=== PATIENT | male | born 1970 | race Caucasian/White ===

== ENCOUNTER 2016-09-26 14:47 | Emergency (ER) | payer SELFPAY ==
[~2016-09-26] VITALS: Ht 175.3 cm; Wt 77.3 kg
[~2016-09-26 14:47] MED LIST: NO HOME MEDICATIONS; VICODIN 5/5001 UDTAB PO
[2016-09-26 15:03] VITALS: BP 144/89; PULSE 85; TEMP 98
[2016-09-26 16:15] LABS: AMPHETAMINE URINE POSITIVE; BARBITURATES URINE NEGATIVE; BENZODIAZEPINES URINE NEGATIVE; BUPRENORPHINE URINE NEGATIVE; METHADONE URINE NEGATIVE; OPIATES URINE NEGATIVE; OXYCODONE URINE NEGATIVE; PHENCYCLIDINE URINE NEGATIVE; PROPOXYPHENE URINE NEGATIVE; THC CANNABINOIDS URINE POSITIVE
[2016-09-26 16:24] LABS: BASO % 0.3 % (0.0-2.0); EOS # 0.3 (0.0-0.7); EOS % 3.5 % (0-4.0); GRAN # 5.2 (1.4-6.5); HEMATOCRIT 40.2 % (42.0-52.0); HEMOGLOBIN 13.7 g/dl (13.5-18.0); LYMPH # 3.3 (1.2-3.4); LYMPH % 34.7 % (20.0-51.0); MEAN CELL VOLUME 92 fl (80.0-100.0); MEAN CORPUSCULAR HEMOGLOBIN 31 pg (27.0-31.0); MEAN CORPUSCULAR HGB CONC 34 g/dl (33.0-37.0); MEAN PLATELET VOLUME 10.7 fl (7.4-10.4); MONO # 0.6 (0.1-0.6); MONO % 6.2 % (1.7-9.3); PLATELET COUNT 328 K/mm3 (130-400); RED BLOOD COUNT 4.36 M/mm3 (4.20-5.60); REDCELL DISTRIBUTION WIDTH-CV 12.7 % (11.5-14.5); WHITE BLOOD COUNT 9.5 K/mm3 (4.8-10.8)
[2016-09-26 16:28] LABS: ADJUSTED CALCIUM 9.2 mg/dL (8.4-10.2); ALANINE AMINOTRANSFERASE 37 U/L (21-72); ALBUMIN 4.1 gm/dL (3.5-5.0); ALKALINE PHOSPHATASE 99 U/L (50-136); ANION GAP 13 mmol/L (7-16); BILIRUBIN,TOTAL 0.9 mg/dL (0.0-1.0); BLOOD UREA NITROGEN 11 mg/dL (9-20); CALCIUM 9.3 mg/dL (8.4-10.2); CARBON DIOXIDE 24 mmol/L (22-30); CHLORIDE 103 mmol/L (98-107); CREATININE, serum 0.75 mg/dL (0.66-1.25); GLUCOSE 91 mg/dL (74-106); POTASSIUM 3.6 mmol/L (3.4-5.0); SODIUM 140 mmol/L (137-145); TOTAL PROTEIN 7.2 gm/dL (6.4-8.2)
[2016-09-26 16:33] LABS: ACETAMINOPHEN < 10 ug/mL (10-30); SALICYLATE < 1.0 mg/dL
== END 2016-09-26 17:54 | disposition left against medical advice (07) ==
LOC: COL.ER 14:47
PROVIDERS: Emergency Medicine
DX: F29 Unspecified psychosis not due to a substance or known physiological condition (principal); Z53.21 Procedure and treatment not carried out due to patient leaving prior to being seen by health care provider; F15.10 Other stimulant abuse, uncomplicated; F12.10 Cannabis abuse, uncomplicated

== ENCOUNTER 2016-11-24 23:51 | Emergency (ER) | payer SELFPAY ==
[~2016-11-24] VITALS: Ht 175.3 cm; Wt 87.7 kg
[2016-11-24 23:52] VITALS: BP 136/90; TEMP 98.6
[2016-11-25] MEDS ORDERED: ROXICODONE 55 MG/TAB PO (00:28)
[2016-11-25] MEDS ORDERED: ULTRAM 50MG TAB50 MG PO (00:28)
[2016-11-25 00:36] VITALS: PULSE 82
== END 2016-11-25 00:36 | disposition home or self-care (01) ==
LOC: COL.ER 23:51
DX: H16.133 Photokeratitis, bilateral (principal); F17.210 Nicotine dependence, cigarettes, uncomplicated

== ENCOUNTER 2017-05-16 19:46 | Emergency (ER) | payer OTHER ==
[~2017-05-16] VITALS: Ht 175.3 cm; Wt 88.6 kg
[~2017-05-16 19:46] MED LIST changes: +ROXICODONE 55 MG/TAB PO; +ULTRAM 50MG TAB50 MG PO
[2017-05-16 19:59] VITALS: TEMP 99.3
[2017-05-16 20:46] VITALS: BP 162/107
[2017-05-16] MEDS ORDERED: PRINIVIL10 MG PO (20:56)
[2017-05-16 21:07] VITALS: PULSE 96
== END 2017-05-16 21:07 | disposition home or self-care (01) ==
LOC: COL.ER 19:46
DX: I10 Essential (primary) hypertension (principal); R20.2 Paresthesia of skin; F17.210 Nicotine dependence, cigarettes, uncomplicated

== ENCOUNTER → 2017-12-25 | Outpatient (CLI) | payer OTHER ==
[~2017-12-25] MED LIST changes: +PRINIVIL10 MG PO
== END ==
LOC: COL.PUL 07:42
DX: R06.02 Shortness of breath (principal)

== ENCOUNTER 2019-05-25 09:50 | Emergency (ER) | payer OTHER ==
[~2019-05-25] VITALS: Ht 175.3 cm; Wt 90.9 kg
[2019-05-25 09:58] VITALS: TEMP 97.4
[2019-05-25] MEDS ORDERED: PREDNISONE20 MG PO (10:15)
[2019-05-25] MEDS ORDERED: DOXYCYCLINE 10100 MG PO (10:15)
[2019-05-25] MEDS ORDERED: VENTOLIN0.09 MG IH (10:15)
[2019-05-25 10:32] LABS: HEMATOCRIT 45.5 % (42.0-52.0); HEMOGLOBIN 15.5 g/dl (13.5-18.0); MEAN CELL VOLUME 92 fl (80.0-100.0); MEAN CORPUSCULAR HEMOGLOBIN 31 pg (27.0-31.0); MEAN CORPUSCULAR HGB CONC 34 g/dl (33.0-37.0); MEAN PLATELET VOLUME 11.4 fl (7.4-10.4); PLATELET COUNT 266 K/mm3 (130-400); RED BLOOD COUNT 4.95 M/mm3 (4.20-5.60); REDCELL DISTRIBUTION WIDTH-CV 12.3 % (11.5-14.5)
[2019-05-25 10:38] LABS: ALBUMIN 4.3 gm/dL (3.5-5.0); BILIRUBIN,TOTAL 0.9 mg/dL (0.0-1.0); CALCIUM 9.3 mg/dL (8.4-10.2); CREATININE, serum 0.88 (0.66-1.25); POTASSIUM 4.1 mmol/L (3.4-5.0)
[2019-05-25] MEDS ORDERED: [UNRECOGNIZED DRUG - OTHER] INH (10:49)
[2019-05-25 11:14] LABS: EOSINOPHIL 1 % (0-4); LYMPHOCYTE 42 % (20.0-51.0); NEUTROPHILS 50 % (42.0-75.2)
[2019-05-25 11:15] LABS: PLATELET ESTIMATE NORMAL (NORMAL)
[2019-05-25 12:15] VITALS: BP 103/76; PULSE 88
== END 2019-05-25 12:25 | disposition home or self-care (01) ==
LOC: COL.ER 09:50
PROVIDERS: Emergency Medicine
DX: J44.1 Chronic obstructive pulmonary disease with (acute) exacerbation (principal); F17.210 Nicotine dependence, cigarettes, uncomplicated; Z90.89 Acquired absence of other organs
CPT/HCPCS: J2930; J3475; J7030

== ENCOUNTER → 2019-06-04 | Outpatient (CLI) | payer OTHER ==
[~2019-06-04] MED LIST changes: +DOXYCYCLINE 10100 MG PO; +PREDNISONE20 MG PO; +VENTOLIN0.09 MG IH; +[UNRECOGNIZED DRUG - OTHER] INH
== END ==
LOC: COL.VAS 11:36 → COL.LAB 11:36 → COL.VAS 12:30
DX: I77.819 Aortic ectasia, unspecified site (principal); I36.1 Nonrheumatic tricuspid (valve) insufficiency

== ENCOUNTER 2019-07-01 09:32 | Day surgery (SDC) | payer OTHER ==
[2019-07-01] VITALS (9 sets, daily range): BP systolic 105–131; BP diastolic 56–97; PULSE 76–89; TEMP 97.8
[~2019-07-01] VITALS: Ht 175.3 cm; Wt 98.0 kg
[2019-07-01 10:20] LABS: HEMATOCRIT 44.4 % (42.0-52.0); MEAN CELL VOLUME 93 fl (80.0-100.0); MEAN CORPUSCULAR HEMOGLOBIN 31 pg (27.0-31.0); MEAN CORPUSCULAR HGB CONC 34 g/dl (33.0-37.0); MEAN PLATELET VOLUME 10.7 fl (7.4-10.4); PLATELET COUNT 298 K/mm3 (130-400); RED BLOOD COUNT 4.78 M/mm3 (4.20-5.60); REDCELL DISTRIBUTION WIDTH-CV 13.1 % (11.5-14.5)
[2019-07-01 10:30] LABS: PROTHROMBIN TIME 11.6 SECONDS (9.7-12.8)
[2019-07-01 10:32] LABS: PARTIAL THROMBOPLASTIN TIME 38.1 SECONDS (26.0-37.0)
[2019-07-01] MEDS ORDERED: ASPIRIN E.C. 8181 MG PO (10:32)
[2019-07-01 10:33] LABS: CALCIUM 9.6 mg/dL (8.4-10.2); CREATININE, serum 0.85 (0.66-1.25); POTASSIUM 4.5 mmol/L (3.4-5.0)
[2019-07-01] MEDS ORDERED: K-TAB20 PO (10:35)
[2019-07-01] MEDS ORDERED: LASIX 40MG TABL40 MG PO (10:35)
[2019-07-01] MEDS ORDERED: COREG 3.123.125 MG/T PO ×2 (10:37→12:13)
[2019-07-01] MEDS ORDERED: TRELEGY ELLIPT1 EACH IH (10:38)
[2019-07-01] MEDS ORDERED: COZAAR 25MG25 MG/TAB PO (10:38)
[2019-07-01] MEDS ORDERED: RT ALBUTER2.5 MG/0.5 IH (10:40)
--- NOTE | 2019-07-01 11:44 | NUR ---
SEE MERGE FOR MEDICATION ADMINISTRATION AND INRA/POST PROCEDURE SEDATION ASSESSMENTS.
--- NOTE | 2019-07-01 12:25 | NUR ---
pt to eu 9 from heart cath via bed. family with pt. call light in reach. no c/o. reviewed bedrest and activity with pt. drinks juice
--- NOTE | 2019-07-01 13:10 | NUR ---
pt sits up and eats, no c/o
--- NOTE | 2019-07-01 13:25 | NUR ---
PT C/O NUMBNESS TO ALL FINGERS ON RIGHT HAND, NAILS BOBO WELL, COLOR PINK, WARM TO TOUCH, 1CC OF AIR RELEASED, PT STATES FINGERS ARE NOW NORMAL, NO SIGNS OF BLEEDING
--- NOTE | 2019-07-01 14:15 | NUR ---
PT STOOD TO USE URINAL, VOIDED 300CC YELLOW URINE, NO C/O, REVIEWED DISCHARGE INST. WITH PT AND ON ACTIVITY, CARE OF SITE, APPT AND FOLLOWUP AND NEW RX TO BE PICKED UP WITH INCREASE OF COREG WITH VERBAL UNDERSTANDING.
--- NOTE | 2019-07-01 14:30 | NUR ---
BAND RELEASED 2CC OF AIR, RELEASED AGAIN 2CC AT 1445 AND 2CC AT 1500, NO BLEEDING NOTED, BANDAID TO SITE THEN COBAN APPLIED. IV D'CD INTACT. PT UP IN ROOM DRESSED
--- NOTE | 2019-07-01 15:20 | NUR ---
PT DISCHARGED VIA W/C TO CAR WITH FAMILY
== END 2019-07-01 15:25 | disposition home or self-care (01) ==
LOC: COL.CAR 09:32
PROVIDERS: Internal Medicine Cardiovascular Disease
DX: I11.9 Hypertensive heart disease without heart failure (principal); I43 Cardiomyopathy in diseases classified elsewhere; Z87.891 Personal history of nicotine dependence; Z88.8 Allergy status to other drugs, medicaments and biological substances; Z79.52 Long term (current) use of systemic steroids
CPT/HCPCS: J1644; J2250; J3010; Q9967

== ENCOUNTER 2019-11-18 10:12 | Outpatient (RCR) | payer OTHER ==
[~2019-11-18 10:12] MED LIST changes: +ASPIRIN E.C. 8181 MG PO; +COREG 3.123.125 MG/T PO; +COZAAR 25MG25 MG/TAB PO; +K-TAB20 PO; +LASIX 40MG TABL40 MG PO; +RT ALBUTER2.5 MG/0.5 IH; +TRELEGY ELLIPT1 EACH IH
== END 2019-12-11 06:44 | disposition home or self-care (01) ==
LOC: COL.CR 10:12
DX: I50.22 Chronic systolic (congestive) heart failure (principal); I42.8 Other cardiomyopathies

== ENCOUNTER → 2020-06-02 | Outpatient (CLI) | payer OTHER ==
[~2020-06-02] MED LIST changes: +BUMEX2 MG PO; +CEPHALEXIN500 M1 PO; +ENTRESTO 49 MG1 EACH PO; +IPRATROPIUM BROM3 M1 IH; +K-DUR20 MEQ PO; +LIPITOR 40MG TA40 MG PO; +NICODERM C14 MG/PATC TD; +OMEGA-3 1000 MG1 CAP PO; +PROAIR HFA0.09 MG/AC IH; +TOPROL XL 25MG25 MG PO; +ZAROXOLYN5 MG PO
== END ==
LOC: COL.LAB 08:00 → EDSTATUS 06-06 11:00 → COL.CAR 06-06 11:00
DX: U07.1 COVID-19 (principal)

== ENCOUNTER 2020-06-21 06:48 | Day surgery (SDC) | payer OTHER ==
[2020-06-21] VITALS (12 sets, daily range): BP systolic 107–132; BP diastolic 68–89; PULSE 64–94; TEMP 97.6
[~2020-06-21] VITALS: Ht 175.3 cm; Wt 105.5 kg
[~2020-06-21 06:48] MED LIST changes: -BUMEX2 MG PO; -CEPHALEXIN500 M1 PO; -ENTRESTO 49 MG1 EACH PO; -IPRATROPIUM BROM3 M1 IH; -K-DUR20 MEQ PO; -LIPITOR 40MG TA40 MG PO; -NICODERM C14 MG/PATC TD; -OMEGA-3 1000 MG1 CAP PO; -PROAIR HFA0.09 MG/AC IH; -TOPROL XL 25MG25 MG PO; -ZAROXOLYN5 MG PO
[2020-06-21 07:27] LABS: HEMATOCRIT 44.2 % (42.0-52.0); HEMOGLOBIN 15.2 g/dl (13.5-18.0); MEAN CELL VOLUME 96 fl (80.0-100.0); MEAN CORPUSCULAR HEMOGLOBIN 33 pg (27.0-31.0); MEAN CORPUSCULAR HGB CONC 34 g/dl (33.0-37.0); MEAN PLATELET VOLUME 10.5 fl (7.4-10.4); PLATELET COUNT 286 K/mm3 (130-400); RED BLOOD COUNT 4.59 M/mm3 (4.20-5.60); REDCELL DISTRIBUTION WIDTH-CV 13.1 % (11.5-14.5)
[2020-06-21] MEDS ORDERED: NICODERM C14 MG/PATC TD (07:42)
[2020-06-21 07:43] LABS: ALBUMIN 4.3 gm/dL (3.5-5.0); BILIRUBIN,TOTAL 0.9 mg/dL (0.0-1.0); CALCIUM 9.5 mg/dL (8.4-10.2); CREATININE, serum 0.93 (0.66-1.25); MAGNESIUM 2.1 mg/dL (1.6-2.3); PROTHROMBIN TIME 11.7 SECONDS (9.7-12.8); TOTAL PROTEIN 7.6 gm/dL (6.4-8.2)
[2020-06-21] MEDS ORDERED: OMEGA-3 1000 MG1 CAP PO (07:46)
[2020-06-21] MEDS ORDERED: LIPITOR 40MG TA40 MG PO (07:48)
[2020-06-21] MEDS ORDERED: TOPROL XL 25MG25 MG PO (08:25)
--- NOTE | 2020-06-21 10:30 | NUR ---
Report from Yesenia WILKINSON. Dressing to left upper chest CD&I and soft palpation. VSS. Alert and oriented, denies pain and needs at this time
[2020-06-21] MEDS ORDERED: ZAROXOLYN5 MG PO (11:00)
[2020-06-21] MEDS ORDERED: K-TAB20 PO (11:02)
[2020-06-21] MEDS ORDERED: ENTRESTO 49 MG1 EACH PO (11:04)
[2020-06-21] MEDS ORDERED: BUMEX2 MG PO (11:13)
--- NOTE | 2020-06-21 15:23 | NUR ---
Bumex complete. INT discontinued intact. Discharge instructions given and pt transferred to private car by dustin
== END 2020-06-21 15:25 | disposition home or self-care (01) ==
LOC: COL.CAR 06:48
PROVIDERS: Internal Medicine Cardiovascular Disease
DX: R06.02 Shortness of breath (principal); R94.39 Abnormal result of other cardiovascular function study; J44.9 Chronic obstructive pulmonary disease, unspecified; Z99.89 Dependence on other enabling machines and devices; Z88.6 Allergy status to analgesic agent; Z95.818 Presence of other cardiac implants and grafts; Z79.82 Long term (current) use of aspirin; Z79.899 Other long term (current) drug therapy
CPT/HCPCS: C1894; J1644; J3010; Q9967

== ENCOUNTER → 2020-08-01 | Outpatient (CLI) | payer OTHER ==
[~2020-08-01] MED LIST changes: +BUMEX2 MG PO; +CEPHALEXIN500 M1 PO; +ENTRESTO 49 MG1 EACH PO; +IPRATROPIUM BROM3 M1 IH; +K-DUR20 MEQ PO; +LIPITOR 40MG TA40 MG PO; +NICODERM C14 MG/PATC TD; +OMEGA-3 1000 MG1 CAP PO; +PROAIR HFA0.09 MG/AC IH; +TOPROL XL 25MG25 MG PO; +ZAROXOLYN5 MG PO
== END ==
LOC: COL.RAD 09:44
DX: R06.00 Dyspnea, unspecified (principal)
CPT/HCPCS: A9540; A9567

== ENCOUNTER → 2020-08-01 | Outpatient (CLI) | payer OTHER | LOC: COL.LAB 08:00 → COL.CAR 08-08 10:00 → EDSTATUS 08-08 10:00 | DX: Z20.822 Contact with and (suspected) exposure to COVID-19 (principal) ==

== ENCOUNTER 2020-08-08 09:38 | Day surgery (SDC) | payer OTHER ==
[2020-08-08] VITALS (9 sets, daily range): BP systolic 98–130; BP diastolic 66–714; PULSE 58–95; TEMP 97.9–98.3
[~2020-08-08] VITALS: Ht 175.3 cm; Wt 106.7 kg
[~2020-08-08 09:38] MED LIST changes: -CEPHALEXIN500 M1 PO; -IPRATROPIUM BROM3 M1 IH; -K-DUR20 MEQ PO; -PROAIR HFA0.09 MG/AC IH
[2020-08-08 10:35] LABS: HEMATOCRIT 42.9 % (42.0-52.0); HEMOGLOBIN 14.8 g/dl (13.5-18.0); MEAN CELL VOLUME 96 fl (80.0-100.0); MEAN CORPUSCULAR HEMOGLOBIN 33 pg (27.0-31.0); MEAN CORPUSCULAR HGB CONC 35 g/dl (33.0-37.0); MEAN PLATELET VOLUME 10.8 fl (7.4-10.4); PLATELET COUNT 345 K/mm3 (130-400); RED BLOOD COUNT 4.47 M/mm3 (4.20-5.60); REDCELL DISTRIBUTION WIDTH-CV 12.8 % (11.5-14.5)
[2020-08-08 10:36] LABS: INR 1.1 (0.8-3.0); PROTHROMBIN TIME 11.9 SECONDS (9.7-12.8)
[2020-08-08 10:39] LABS: ALBUMIN 4.1 gm/dL (3.5-5.0); BILIRUBIN,TOTAL 0.5 mg/dL (0.0-1.0); CALCIUM 9.2 mg/dL (8.4-10.2); CREATININE, serum 0.86 (0.66-1.25); MAGNESIUM 2.3 mg/dL (1.6-2.3); POTASSIUM 4.5 mmol/L (3.4-5.0); TOTAL PROTEIN 7.5 gm/dL (6.4-8.2)
[2020-08-08] MEDS ORDERED: IPRATROPIUM BROM3 M1 IH (10:43)
[2020-08-08] MEDS ORDERED: PROAIR HFA0.09 MG/AC IH (10:44)
[2020-08-08] MEDS ORDERED: K-DUR20 MEQ PO (10:46)
--- NOTE | 2020-08-08 14:29 | NUR ---
SEE MERGE DOCUMENTATION FOR MEDICATION ADMINISTRATION TIMES AND INTRA/POST PROCEDURE SEDATION ASSESSMENTS.
--- NOTE | 2020-08-08 16:00 | NUR ---
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
[2020-08-09 03:37] VITALS: BP 105/71; PULSE 77; TEMP 98.1
--- NOTE | 2020-08-09 05:19 | NUR ---
PATIENT HAD RESTLESS NIGHT GETTING 3-4 HRS OF SLEEP AT A TIME; PAIN AT INCISION SITE WILL WAKE PATIENT. PATIENT WAS ABLE TO QUANTIFY AT 8/10 WITH INITIAL DOSING, SINCE HAS ONLY QUANTIFIED "ACHING". FENTANYL 25MCG DOES TAKE PAIN TO ACCEPTABLE LEVEL FOR SEVERAL HOURS AT A TIME. PATIENT IS CONCERNED ABOUT DISCHARGING WITHOUT MEDICATIONS - ADVISED TO SPEAK WITH PHYSICIAN.
[2020-08-09 07:13] LABS: BASO # 0.1 (0.0-0.2); BASO % 0.6 % (0.0-2.0); EOS # 0.3 (0.0-0.7); EOS % 2.4 % (0-4.0); GRAN # 6.4 (1.4-6.5); LYMPH # 3.2 (1.2-3.4); LYMPH % 29.8 % (20.0-51.0); MEAN CELL VOLUME 97 fl (80.0-100.0); MEAN CORPUSCULAR HEMOGLOBIN 33 pg (27.0-31.0); MEAN CORPUSCULAR HGB CONC 33 g/dl (33.0-37.0); MONO # 0.7 (0.1-0.6); MONO % 6.5 % (1.7-9.3); PLATELET COUNT 329 K/mm3 (130-400); RED BLOOD COUNT 4.62 M/mm3 (4.20-5.60); REDCELL DISTRIBUTION WIDTH-CV 13.1 % (11.5-14.5)
[2020-08-09 07:16] LABS: INR 1.1 (0.8-3.0)
[2020-08-09 07:22] LABS: CALCIUM 9.6 mg/dL (8.4-10.2); CREATININE, serum 0.99 (0.66-1.25); MAGNESIUM 2.2 mg/dL (1.6-2.3); POTASSIUM 4.2 mmol/L (3.4-5.0)
[2020-08-09 09:37] VITALS: BP 110/80; PULSE 83; TEMP 98
--- NOTE | 2020-08-09 09:54 | NUR ---
Initial visit; Patient thanked Cradle Placer for looking in on him, listening and offering God's blessings and keeping him in her prayers.
--- NOTE | 2020-08-09 10:00 | NUR ---
Patient is discharging later today. He is having pain to his left shoulder. Got an order for tramadol for pain, the patient refused it. He wanted IV pain medications, explained we need to try PO meds first and if the don't work than try IV. He verbalized understanding. He is wanting to discharge home, explained we have to wait for the Doctor to see him. No other changes at this time. Call light within reach.
--- NOTE | 2020-08-09 11:38 | NUR ---
[facility] met with the patient to complete intake. The patient lives in [place] with his and a daughter. The patient uses a CPAP and is on 3.5L of oxygen at night (supplies from [facility]. The patient is independent but if he needs any assistance with ADLs his will assist. The patient does not have a PCP. He was open to setting up a PCP. The patient's sees specialist Dr. Ann, Dr. Owens and Dr. Debora Barnett. The patient does not have advanced directives and was not interested in DPOA-HC form. The patient plans to return home at discharge with no anticipated needs. ARLENE contacted Cris Gonzalez RN CM with Dr. Luna. Dr. Luna is out of the office this day but Cris will inform Dr. Luna of the referral for PCP on 08/10. Cris will inform the patient if Dr. Luna will accept the patient for care. There are no additional needs at this time. *Discharge disposition* Home with
[2020-08-09 12:21] VITALS: BP 123/83; PULSE 84; TEMP 98.4
[2020-08-09] MEDS ORDERED: CEPHALEXIN500 M1 PO (13:32)
[2020-08-09] MEDS ORDERED: ULTRAM 50MG TAB50 MG PO (13:33)
--- NOTE | 2020-08-09 14:45 | NUR ---
Patient is discharging home. Discharge instructions discussed with patient. No questions verbalized. He verbalized his instructions from Dr Owens. Explained when follow up appointment is. Explained his medications ordered and that he needs to spanish moss picker his prescriptions from the pharmacy. All belongings packed up by patient. His ride is waiting outside for him. Patient walked out by Taina SALAMANCA. Copies of discharge instructions sent with patient.
== END 2020-08-09 14:45 | disposition home or self-care (01) ==
LOC: COL.CAR 09:38 → MEDICAL 09:38 → COL.CAR 10:00 → MEDICAL 16:05 → COL.CAR 08-09 14:45
PROVIDERS: Internal Medicine Cardiovascular Disease
DX: I45.5 Other specified heart block (principal); I42.8 Other cardiomyopathies; I11.0 Hypertensive heart disease with heart failure; I50.22 Chronic systolic (congestive) heart failure; R06.00 Dyspnea, unspecified; I34.0 Nonrheumatic mitral (valve) insufficiency; I77.810 Thoracic aortic ectasia; I25.10 Atherosclerotic heart disease of native coronary artery without angina pectoris; E66.9 Obesity, unspecified; Z68.33 Body mass index [BMI] 33.0-33.9, adult; Z87.891 Personal history of nicotine dependence; Z79.899 Other long term (current) drug therapy; Z79.82 Long term (current) use of aspirin
CPT/HCPCS: OP; C1785; C1894; C1898; J0690; J1940; J2250; J3010; J7030; Q9967